=== PATIENT | male | born 1970 | race African-American/Black ===

== ENCOUNTER 2023-12-20 13:52 | Outpatient (AMB) | payer OTHER, SELFPAY ==
--- NOTE | 2023-12-20 13:56 | MHC.OFFVIS ---
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 He was referred to us by his Neurologist Dr. Ross Coyne. Patient reports as a child he was hit in the right eye with a golf ball. 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 However, patient states about 8 years ago he realized he had some vision in the right eye and started doing exercises and patching his left eye. He reports developing right eye muscle strain and fatigue with exercises as well as working on computer. 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 He reports appreciation of movement and color with right eye. Patient presents with localized tenderness in the projection of V1 and V2 distribution on the right side of the forehead, medial of right eye and eyebrow and right face. Denies any fever, malaise, weight loss, hearing loss, burning or tingling pain, ear pain, or ipsilateral facial muscle contractions. He denies exacerbation of pain with chewing, talking, eating, sneezing or breeze in the face. Patient reports stress and emotional frustration increases his right eye pain. He completed Stress management education and this has been significantly beneficial to him. Patient has undergone Ophthalmology and Light [employer] T[employer] evaluation and was prescribed Timolol eye drops in 2016 with no effect for suspected glaucoma. Patient reports his last eye exam was in 2020 and he believes his right eye pain was disregarded by previous Ophthalmology providers. Patient states he was referred to [facility] but was not able to see provider due to scheduling and insurances reasons. He denies trying any gabapentin, carbamazapine, pregagalin, amitriptyline, neomycin or erythromycin, prednisolone or toradol eye drops or muscle relaxants. Patient reports history of short term use of opioid for right ear pain and had partial relief of his right eye pain. He has also tried medical marijuana but could not continue due to drowsiness and dizziness. Location: Right eye pain with radiation to medial eyebrow and right side of face Duration: Chronic pain for 44 years, worse within the last 4 years Characteristics of symptom or complaint: Aching, throbbing, spasming, radiating, sharp, tenderness Aggravating or associated factors: Computer work, reading, looking at something for prolonged time, stress Relieving factors: Rest, tried medical marijuana, Tylenol, MVI, alpha lipoic acid Treatment: Stress management, stopped working (IT) [facility] Social History (Updated 12/20/23 @ 14:05 by Mary Whittaker) Alcohol intake: current Alcohol type: beer and wine Patient Tobacco Use Status: Former Tobacco user Tobacco use type: Cigarette Review of Systems Const All systems reviewed & are unremarkable except as noted in HPI and below Physical Exam Vital Signs: Last Vital Signs Pulse 67 12/20/23 14:04 BP 142/88 H 12/20/23 14:04 Pulse Ox 99 12/20/23 14:04 Oxygen Delivery Method Room Air 12/20/23 14:04 BMI result Body Mass Index 28.9 General: Appears afebrile. Alert and oriented. Mood and affect appropriate. Follows and participates in conversation appropriately. Respiratory effort is unlabored. No cough. Able to transition from sit to stand unassisted. Ambulates with bilaterally normal heel strike and toe off. Eyes Other: Localized tenderness in the projection of V1 and V2 distribution on the right side of the forehead, medial of right eye and eyebrow and right face. Hypersensitivity in the supraorbital and infraorbital region on the right with pinprick. General: appearance normal, both eyes and all related structures Visual Hyatt: normal visual hyatt by confrontation Alignment and Position: alignment normal Periorbital: periorbital findings normal Eyelids: Yes eyelids normal Conjunctivae: conjunctivae normal Sclerae: sclerae normal Corneas: corneas normal Direct Ophthalmoscopy: no photophobia and no papilledema Psych Appearance: grossly normal Mental Status: mental status grossly normal Speech and movement: Normal speech and movement present and Clear speech present Affect: normal affect Attitude: cooperative Thought process: Normal thought process present Thought content: Normal thought content present Insight: Good insight present (Psych) Judgement: Good judgement present (Psych) Results Reviewed Results Reviewed: Per Referral notes: Assessment & Plan Assessment & Plan (1) Trigeminal neuralgia pain: Code(s): G50.0 - Trigeminal neuralgia Category: Medical (2) Blind painful right eye: Code(s): H54.40 - Blindness, one eye, unspecified eye; H57.11 - Ocular pain, right eye Category: Medical Plan Schedule Supraorbital and Supratrochlear nerve block with local. Expectations, risks and benefits were reviewed. Patient is aware he will be contacted to schedule this procedure. Scripts provided for baclofen and gabapentin. Side effects and precautions were discussed with patient in greater detail. Patient was encouraged to follow-up for eye exam and recheck IOC levels. All questions were answered and the patient is in agreement of plan. Follow-up after injections and sooner as needed. Medications: New baclofen 10 mg PO BID PRN 60 tabs 0RF muscle spasm 30 days G50.0 - Trigeminal neuralgia, H54.40 - Blindness, one eye, unspecified eye, H57.11 - Ocular pain, right eye gabapentin 300 mg PO BEDTIME 30 caps 0RF pain 30 days G50.0 - Trigeminal neuralgia, H54.40 - Blindness, one eye, unspecified eye, H57.11 - Ocular pain, right eye Coding Level of Care Code New Pt Level 4 (51848) Diagnoses Trigeminal neuralgia pain G50.0 Blind painful right eye H54.40; H57.11
[2023-12-20 14:04] VITALS: BP 142/88; PULSE 67; O2SAT 99; BMI 28.9
== END 2023-12-20 14:59 | disposition home or self-care (01) ==
PROVIDERS: PCP Physician Assistant Medical; Referring Provider Internal Medicine; Visit Provider Nurse Practitioner Family
DX: G50.0 Trigeminal neuralgia (principal); H54.40 Blindness, one eye, unspecified eye; H57.11 Ocular pain, right eye
CPT/HCPCS: 99204

== ENCOUNTER → 2023-12-20 13:52 | Outpatient (BNVA) | payer OTHER, SELFPAY | PROVIDERS: PCP Physician Assistant Medical; Referring Provider Internal Medicine; Visit Provider Nurse Practitioner Family ==

== ENCOUNTER 2024-01-11 09:48 | Outpatient (AMB) | payer OTHER, SELFPAY ==
[2024-01-11 09:53] VITALS: BP 158/90; PULSE 69; RESP 14; O2SAT 99; BMI 29.7
--- NOTE | 2024-01-11 09:53 | A.OFFVIS_ITS ---
Vital Signs 3 01/11/24 09:53 Height 6 ft 2 in Weight 231 lb BMI 29.7 BP 158/90 H Blood Pressure Location Lt brachial Position Sitting Respiration 14 Pulse 69 Pulse Source Pulse Oximeter Pulse Oximetry (%) 99 Oxygen Delivery Method Room Air Intake Visit Reasons: Right supraorbital/supratrochlear NB Allergies No Known Allergies Allergy (Verified 01/14/24 10:37) Medication List - Last Reconciled 01/11/24 by Johanna Garcia LPN baclofen 10 mg PO BID PRN 30 days gabapentin 300 mg PO BEDTIME 30 days HPI HPI Right supraorbital/supratrochlear NB: Details: 53-year-old male who presents today for an evaluation of right supraorbital/supratrochlear NB. He complains of severe headaches. He finds difficulty looking up with his left eye. He denies history of strabismus strabismus. He injured his left eye and he could not see from his left eye for about a month as he was hit by a ball. He saw several physicians and plugging machine operator and then he came back to [facility]. He noticed that whenever he need to concentrate or focus on difficult tasks, he has been experiencing pain. He reports that someone told him about two months ago that when he closed his one eye, he has difficulty seeing from this other eye. He has been doing eye exercises over the last year. He went to [facility] about 2.5 years ago and requested a referral but he was refused to see secondary to insurance issues. He reports when he gets emotional, his pain increases and pain also increased with certain movements. He states that he has difficulty in his ADLs. He did have an MRI in 2017 which showed no abnormality. He has tried medical marijuana for concentration and focus on exercise but that cause him cognitive disability. He has been taking Baclofen and gabapentin with benefit. [facility] Social History Alcohol intake: current Alcohol type: beer and wine Patient Tobacco Use Status: Former Tobacco user Tobacco use type: Cigarette Review of Systems Const All systems reviewed & are unremarkable except as noted in HPI and below Physical Exam Vital Signs: Last Vital Signs Pulse 69 01/11/24 09:53 Resp 14 01/11/24 09:53 BP 158/90 H 01/11/24 09:53 Pulse Ox 99 01/11/24 09:53 Oxygen Delivery Method Room Air 01/11/24 09:53 BMI result Body Mass Index 29.7 General: Appears afebrile. Alert and oriented. Mood and affect appropriate. Follows and participates in conversation appropriately. Respiratory effort is unlabored. Able to transition from sit to stand unassisted. Conjugate gaze tracking is intact when using both eyes or the left eye alone. The right eye does not track a figure of H with the left eye covered. Office Procedures Nerve Block Details: Right supraorbital and supratrochlear nerve block After obtaining written consent, pre-procedure blood pressure and heart rate were stable and recorded in the nursing record. The patient was placed sitting on the table. The right forehead area was prepped with ChloraPrep. Using appropriate landmarks, a 27 gauge needle was advanced to the right supratrochlear and then the right supraorbital nerve. 1 cc of ropivacaine 0.5% was injected at each site. The needle was removed, skin cleansed. The patient tolerated the procedure well and no complications were encountered. Following the procedure the patient's vital signs and knee strength were stable. The patient was discharged home in good condition with post-procedural instructions. Time Out: Immediately prior to the procedure, the following was verbally confirmed that there is a signed consent form and that the correct patient, planned procedure, site and side are consistent with documentation and that necessary equipment and/or blood products are available prior to the start of the case. Complications: none EBL: <1 cc Additional procedure code (CPT) needed Results Reviewed Results Reviewed: Per Referral notes: Assessment & Plan Assessment & Plan (1) Trigeminal neuralgia pain: Code(s): G50.0 - Trigeminal neuralgia Category: Medical Plan Patient is status post diagnostic right supraorbital/supratrochlear nerve blocks. I had a long discussion with the patient to go over his nature of his problem. He does have some visual disorder of the right eye that I would investigate further with ophthalmology colleagues. Patient is in agreement with the plan. Scribed for Dr. Flores by Delano Barclay, medical information officer, on 01/11/2024. I, Dr. Flores, have personally reviewed and agree with the information entered by the scribe Coding Level of Care Code Est Pt Level 4 (81888) Diagnoses Trigeminal neuralgia pain G50.0
== END 2024-01-11 10:17 | disposition home or self-care (01) ==
PROVIDERS: PCP Physician Assistant Medical; Visit Provider Internal Medicine
DX: G50.0 Trigeminal neuralgia (principal)
CPT/HCPCS: 64400; 99214

== ENCOUNTER → 2024-01-11 09:48 | Outpatient (BNVA) | payer OTHER, SELFPAY | PROVIDERS: PCP Physician Assistant Medical; Visit Provider Internal Medicine | DX: G50.0 Trigeminal neuralgia (principal) | CPT/HCPCS: 64400; J2795 ==

== ENCOUNTER 2024-01-14 10:26 | Outpatient (AMB) | payer OTHER, SELFPAY ==
--- NOTE | 2024-01-14 10:32 | A.OFFVIS_ITS ---
Vital Signs 3 01/14/24 10:36 Height 6 ft 2 in Weight 225 lb BMI 28.9 BP 155/85 H Blood Pressure Location Lt brachial Position Sitting Pulse 69 Pulse Source Pulse Oximeter Pulse Oximetry (%) 100 Oxygen Delivery Method Room Air Intake Visit Reasons: s/p supraorbital/supratrochlear NB Intake Note: Pain today 11/06 Occupational Health Nurse Required: No Accompanied by: Self / Same As Patient Allergies No Known Allergies Allergy (Verified 01/14/24 10:37) HPI Comments Details: Patient is status post right supraorbital/supratrochlear nerve blocks on 01/11/[address] Flores. Patient reports ongoing 60% pain relief since procedure with improvement in his functioning and sleep. He reports no pain coverage with nerve blocks in his right medial aspect of the brow where he usually experiences the most throbbing and pulsating pain. Patient reports gabapentin 300 mg at bedtime and baclofen prn alleviated his secondary pain around his head. Patient reports right eye pain with eye movements, focusing and looking down. He has plans to follow up with his Neurologist and Director Of In Service Education to address his right eye movement disorder. Denies any recent cough, cold, infection, fever, any significant changes in her medical history, medications or recent hospitalizations. 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 He was referred to us by his Neurologist Dr. Ross Coyne. Patient reports as a child he was hit in the right eye with a golf ball. 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 However, patient states about 8 years ago he realized he had some vision in the right eye and started doing exercises and patching his left eye. He reports developing right eye muscle strain and fatigue with exercises as well as working on computer. 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 He reports appreciation of movement and color with right eye. Patient presents with localized tenderness in the projection of V1 and V2 distribution on the right side of the forehead, medial of right eye and eyebrow and right face. Denies any fever, malaise, weight loss, hearing loss, burning or tingling pain, ear pain, or ipsilateral facial muscle contractions. He denies exacerbation of pain with chewing, talking, eating, sneezing or breeze in the face. Patient reports stress and emotional frustration increases his right eye pain. He completed Stress management education and this has been significantly beneficial to him. 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 Patient reports his last eye exam was in 2020 and he believes his right eye pain was disregarded by previous Ophthalmology providers. Patient states he was referred to [facility] but was not able to see provider due to scheduling and insurances reasons. He denies trying any gabapentin, carbamazapine, pregagalin, amitriptyline, neomycin or erythromycin, prednisolone or toradol eye drops or muscle relaxants. Patient reports history of short term use of opioid for right ear pain and had partial relief of his right eye pain. He has also tried medical marijuana but could not continue due to drowsiness and dizziness. Location: Right eye pain with radiation to medial eyebrow and right side of face Duration: Chronic pain for 44 years, worse within the last 4 years Characteristics of symptom or complaint: Aching, throbbing, spasming, radiating, sharp, tenderness Aggravating or associated factors: Computer work, reading, looking at something for prolonged time, stress Relieving factors: Rest, tried medical marijuana, Tylenol, MVI, alpha lipoic acid Treatment: Stress management, stopped working (IT) [facility] Social History Alcohol intake: current Alcohol type: beer and wine Patient Tobacco Use Status: Former Tobacco user Tobacco use type: Cigarette Review of Systems Const All systems reviewed & are unremarkable except as noted in HPI and below Physical Exam Vital Signs: Last Vital Signs Pulse 69 01/14/24 10:36 BP 155/85 H 01/14/24 10:36 Pulse Ox 100 01/14/24 10:36 Oxygen Delivery Method Room Air 01/14/24 10:36 BMI result Body Mass Index 28.9 General: Appears afebrile. No acute distress. Alert and oriented. Mood and affect appropriate. Follows and participates in conversation appropriately. Respiratory effort is unlabored. No cough. Able to transition from sit to stand unassisted. Ambulates with bilaterally normal heel strike and toe off. Results Reviewed Results Reviewed: Per Referral notes: Assessment & Plan Assessment & Plan (1) Blind painful right eye: Code(s): H54.40 - Blindness, one eye, unspecified eye; H57.11 - Ocular pain, right eye Category: Medical (2) Trigeminal neuralgia pain: Code(s): G50.0 - Trigeminal neuralgia Category: Medical Plan Patient is status post diagnostic right supraorbital/supratrochlear nerve blocks on 01/11/[address] Flores with good results, providing him at least 60% ongoing pain relief He will continue to monitor his right eye pain symptoms and notify our office if he is interested to repeat injections with steroid. Patient would like future injections to address his right medial eye brow pain which was not covered by recent nerve blocks. He has plans to follow up with Neurology and Opthalmology providers to address right eye movement disorder as he continues to experience significant right eye pain with focusing or movements. Continue gabapentin and baclofen, monitor for any side effects. All questions and concerns have been answered and patient agreed with the plan. Follow up as needed. Coding Level of Care Code Est Pt Level 3 (79020) Diagnoses Blind painful right eye H54.40; H57.11 Trigeminal neuralgia pain G50.0
[2024-01-14 10:36] VITALS: BP 155/85; PULSE 69; O2SAT 100; BMI 28.9
== END 2024-01-14 10:55 | disposition home or self-care (01) ==
PROVIDERS: PCP Physician Assistant Medical; Visit Provider Nurse Practitioner Family
DX: H54.40 Blindness, one eye, unspecified eye (principal); H57.11 Ocular pain, right eye; G50.0 Trigeminal neuralgia
CPT/HCPCS: 99213

== ENCOUNTER → 2024-01-14 10:26 | Outpatient (BNVA) | payer OTHER, SELFPAY | PROVIDERS: PCP Physician Assistant Medical; Visit Provider Nurse Practitioner Family ==

== ENCOUNTER 2024-03-11 08:37 | Outpatient (AMB) | payer OTHER, SELFPAY ==
--- NOTE | 2024-03-11 08:38 | MHC.OFFVIS ---
Vital Signs 03/11/24 08:42 Height 6 ft 2 in Weight 235 lb BMI 30.2 BP 160/98 H Blood Pressure Location Lt brachial Position Sitting Pulse 63 Pulse Source Pulse Oximeter Pulse Oximetry (%) 98 Oxygen Delivery Method Room Air Intake Visit Reasons: Follow Up patient requested Intake Note: Pain today 12/06 Dot Compliance Manager Required: No Accompanied by: Self / Same As Patient Allergies No Known Allergies Allergy (Verified 03/11/24 08:42) HPI Comments Details: Patient presents today for follow up for pain in the medial aspect of the right brow. He reports some improvement in his vision which he believes strains his eye and increases his pain. Patient has tried patching his right eye, gabapentin, baclofen, previously and has stopped medications due to drowsiness. He had right supraorbital/supratrochlear nerve blocks on 01/11/[address] Flores with 60% pain relief since procedure with improvement in his functioning and sleep but significant pain coverage with nerve blocks in his right medial aspect of the brow where he usually experiences the most throbbing and pulsating pain. Patient reports persistent and significant right eye pain with eye movements, focusing and looking down. He request referral to Neuro-Opthalmalogist in [place] for his right eye movement disorder prior to any further treatments. Denies any recent cough, cold, infection, fever, any significant changes in her medical history, medications or recent hospitalizations. 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 He was referred to us by his Neurologist Dr. Ross Coyne. Patient reports as a child he was hit in the right eye with a golf ball. 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 However, patient states about 8 years ago he realized he had some vision in the right eye and started doing exercises and patching his left eye. He reports developing right eye muscle strain and fatigue with exercises as well as working on computer. 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 He reports appreciation of movement and color with right eye. Patient presents with localized tenderness in the projection of V1 and V2 distribution on the right side of the forehead, medial of right eye and eyebrow and right face. Denies any fever, malaise, weight loss, hearing loss, burning or tingling pain, ear pain, or ipsilateral facial muscle contractions. He denies exacerbation of pain with chewing, talking, eating, sneezing or breeze in the face. Patient reports stress and emotional frustration increases his right eye pain. He completed Stress management education and this has been significantly beneficial to him. Patient has undergone Ophthalmology and [employer] evaluation and was prescribed Timolol eye drops in 2016 with no effect for suspected glaucoma. Patient reports his last eye exam was in 2020 and he believes his right eye pain was disregarded by previous Ophthalmology providers. Patient states he was referred to [facility] but was not able to see provider due to scheduling and insurances reasons. He denies trying any gabapentin, carbamazapine, pregagalin, amitriptyline, neomycin or erythromycin, prednisolone or toradol eye drops or muscle relaxants. Patient reports history of short term use of opioid for right ear pain and had partial relief of his right eye pain. He has also tried medical marijuana but could not continue due to drowsiness and dizziness. Location: Right eye pain with radiation to medial eyebrow and right side of face Duration: Chronic pain for 44 years, worse within the last 4 years Characteristics of symptom or complaint: Aching, throbbing, spasming, radiating, sharp, tenderness Aggravating or associated factors: Computer work, reading, looking at something for prolonged time, stress Relieving factors: Rest, tried medical marijuana, Tylenol, MVI, alpha lipoic acid Treatment: Stress management, stopped working (IT) [facility] Social History Alcohol intake: current Alcohol type: beer and wine Patient Tobacco Use Status: Former Tobacco user Tobacco use type: Cigarette Review of Systems Const All systems reviewed & are unremarkable except as noted in HPI and below Physical Exam Vital Signs: Last Vital Signs Pulse 63 03/11/24 08:42 BP 160/98 H 03/11/24 08:42 Pulse Ox 98 03/11/24 08:42 Oxygen Delivery Method Room Air 03/11/24 08:42 BMI result Body Mass Index 30.2 General: Appears afebrile. Alert and oriented. Mood and affect appropriate. Follows and participates in conversation appropriately. Respiratory effort is unlabored. Able to transition from sit to stand unassisted. Conjugate gaze tracking is intact when using both eyes or the left eye alone but right eye not tracking if left eye is covered. Results Reviewed Results Reviewed: Per Referral notes: Assessment & Plan Assessment & Plan (1) Blind painful right eye: Code(s): H54.40 - Blindness, one eye, unspecified eye; H57.11 - Ocular pain, right eye Category: Medical (2) Trigeminal neuralgia pain: Code(s): G50.0 - Trigeminal neuralgia Category: Medical (3) Eye movement disorder: Code(s): H51.9 - Unspecified disorder of binocular movement Category: Medical Plan Patient presents today with persistent right eye pain, worse in the medial eyebrow aspect. He underwent diagnostic right supraorbital/supratrochlear nerve blocks on 01/11/[address] Flores with 60% pain relief but not in his main concern area, medial eyebrow. Referral placed to Neuro-ophthalmology at [facility]. Will discontinue gabapentin and baclofen due to minimal effect and drowsiness. All questions and concerns have been answered and patient agreed with the plan. Follow up as needed. Orders: Referrals Ophthalmology Referral G50.0 - Trigeminal neuralgia, H51.9 - Unspecified disorder of binocular movement, H54.40 - Blindness, one eye, unspecified eye, H57.11 - Ocular pain, right eye Coding Level of Care Code Est Pt Level 4 (00350) Diagnoses Blind painful right eye H54.40; H57.11 Trigeminal neuralgia pain G50.0 Eye movement disorder H51.9
[2024-03-11 08:42] VITALS: BP 160/98; PULSE 63; O2SAT 98; BMI 30.2
== END 2024-03-11 09:41 | disposition home or self-care (01) ==
PROVIDERS: PCP Physician Assistant Medical; Visit Provider Nurse Practitioner Family
DX: H54.40 Blindness, one eye, unspecified eye (principal); H57.11 Ocular pain, right eye; G50.0 Trigeminal neuralgia; H51.9 Unspecified disorder of binocular movement
CPT/HCPCS: 99214

== ENCOUNTER → 2024-03-11 08:37 | Outpatient (BNVA) | payer OTHER, SELFPAY | PROVIDERS: PCP Physician Assistant Medical; Visit Provider Nurse Practitioner Family ==